=== PATIENT | female | born 1985 | race Hispanic/Latino ===

== ENCOUNTER 2017-03-23 01:28 | Emergency (ER) | payer BC ==
[2017-03-23] MEDS ORDERED: Ondansetron HCl/PF 4 MG/2 ML Vial ONE (01:52)
[2017-03-23 01:53] LABS: Blood, Urine Large (Negative); Clarity Cloudy (Clear); Glucose, Urine (Dipstick) Negative (Negative); Urobilinogen 0.2 mg/dL (0.2-1.0)
[2017-03-23 01:55] LABS: Bilirubin Negative (Negative); Icto Negative (Negative)
[2017-03-23 01:56] LABS: Specific Gravity, Urine 1.008 (1.002-1.036)
[2017-03-23 01:58] LABS: Leukocyte Unable to Interpret (Negative); Nitrite Unable to Interpret (Negative); Protein, Urine (Dipstick) Unable to Interpret mg/dL (Neg-Trace); pH, Urine 8.5 (5.0-9.0)
[2017-03-23 01:59] LABS: RBC/HPF GREATER THAN 50-TNTC HPF (0-3)
[2017-03-23 02:03] LABS: Bacteria/HPF 2+ HPF (None Seen); Squamous Epithelial 0-3 HPF (0-3); WBC/HPF 21-50 HPF (0-3)
[2017-03-23 02:04] LABS: Pregnancy Test - Urine (BHCG) Negative (NEGATIVE); Pregu Control Background? CLEAR/WHITE (CLR/WHITE); Pregu Control Bar Appear? YES (CONTROL BAR); Specific Gravity 1.008 (1.002-1.036)
[2017-03-23] MEDS ORDERED: Ketorolac Tromethamine 30 MG/ML VIAL ONE (02:14)
[2017-03-23 02:15] LABS: Band 14 % (5-11); Hemoglobin 13.7 g/dL (12.0-16.0); Lymphocytes 23 % (21-51); MDiff Complete? YES; Mean Corpuscular HGB CONC 32.3 g/dL (32.0-36.0); Mean Corpuscular Hemoglobin 28.1 pg (27.0-31.0); Mean Corpuscular Volume 87.2 fl (81.0-99.0); Mean Platelet Volume 7.4 fL (7.4-10.4); Monocytes 1 % (0-10); Neutrophil 58 % (42-75); PLT Morphology Comment Appears Adequate; Platelet Count 247 thou/uL (130-400); RBC Distribution Width 13.1 % (11.5-14.5); RBC Morphology Normal; Reactive Lymphocytes 4 % (0-10); Red Blood Cell (RBC) Count 4.86 mill/uL (4.20-5.40); White Blood Cell (WBC) Count 20.8 thou/uL (4.8-10.8)
[2017-03-23 02:17] LABS: ALT (SGPT) 21 U/L (8-55); AST (SGOT) 18 U/L (5-34); Albumin 4.1 g/dL (3.5-5.0); Alkaline Phosphatase 85 U/L (40-150); Anion Gap 17 mmol/L (10-20); BUN (Urea Nitrogen) 6 mg/dL (7.0-18.7); Bilirubin, Total 0.4 mg/dL (0.2-1.2); Calc. Creatinine Clearance 0 mL/min (70-130); Carbon Dioxide 22 mmol/L (22-29); Chloride 104 mmol/L (98-107); Estimated GFR-MDRD Greater than 90; Globulin 3.7 g/dL (2.4-3.5); Glucose 104 mg/dL (70-105); Potassium 3.7 mmol/L (3.5-5.1); Protein, Total 7.8 g/dL (6.0-8.3); Sodium 139 mmol/L (136-145)
[2017-03-23] MEDS ORDERED: Ciprofloxacin 500 MG TAB ONE (02:18)
[2017-03-23] MEDS ORDERED: Phenazopyridine HCl 97.5 MG TABLET ONE (02:24)
== END 2017-03-23 02:38 | disposition home or self-care (01) ==
LOC: NAV ERS 01:28
DX: N39.0 Urinary tract infection, site not specified (principal); Z87.442 Personal history of urinary calculi
CPT/HCPCS: 80053; 81003; 81015; 81025; 85025; 87077; 87086; 87186; 96374; 96375; J1885; J2405